=== PATIENT | female | born 1960 | race Caucasian/White ===

== ENCOUNTER → 2022-11-03 | Outpatient (CLI) | payer BC | END | disposition home or self-care (01) | LOC: LAB 09:59 → LAB SHORT 09:59 | DX: N39.0 Urinary tract infection, site not specified (principal) | CPT/HCPCS: 87086; 87147 ==

== ENCOUNTER 2023-06-10 09:04 | Day surgery (SDC) | payer BC ==
[~2023-06-10] VITALS: Ht 177.8 cm; Wt 112.3 kg
[~2023-06-10 09:04] MED LIST: Lactated Ringer's 1,000 ML IV ONE; propofoL 40 ML IV ONE
[2023-06-10] MEDS ORDERED: Prinivil10 MG (09:53)
[2023-06-10] MEDS ORDERED: TAMO10 (09:53)
[2023-06-10] MEDS ORDERED: HYDCHL25 (09:53)
[2023-06-10] MEDS ORDERED: THERA-D2000 UNIT (09:54)
[2023-06-10] MEDS ORDERED: ASCO500 (09:54)
[2023-06-10] MEDS ORDERED: Phentermine HCl15 MG (09:54)
[2023-06-10] MEDS ORDERED: CENTRUM SILVER1 EAC2 (09:55)
[2023-06-10] MEDS ORDERED: Aspir 8181 MG (09:55)
[2023-06-10] MEDS ORDERED: Lactated Ringer's 1,000 ML IV ONE (10:41)
[2023-06-10 14:01] VITALS: BP 111/66
== END 2023-06-10 12:09 | disposition home or self-care (01) ==
LOC: ORSCSDS 09:04
PROVIDERS: Internal Medicine Gastroenterology
PROC: 0DJD8ZZ Inspection of Lower Intestinal Tract, Via Natural or Artificial Opening Endoscopic (ICD-10-PCS; principal; 2023-06-10 10:15)
DX: Z12.11 Encounter for screening for malignant neoplasm of colon (principal); K57.30 Diverticulosis of large intestine without perforation or abscess without bleeding; K64.4 Residual hemorrhoidal skin tags; I10 Essential (primary) hypertension; E88.810 Metabolic syndrome; Z79.899 Other long term (current) drug therapy
CPT/HCPCS: J2704; J7120